=== PATIENT | male | born 1960 | race Caucasian/White ===

== ENCOUNTER 2021-10-19 20:49 | Emergency (ER) | payer MEDICAID ==
[2021-10-19 22:18] LABS: TROPONIN I HIGH SENSITIVITY 12.9 pg/mL (<=60.3)
== END 2021-10-19 22:46 | disposition home or self-care (01) ==
LOC: JP.ED 20:49
DX: I10 Essential (primary) hypertension (principal); E66.9 Obesity, unspecified; E78.5 Hyperlipidemia, unspecified; R73.03 Prediabetes; Z68.35 Body mass index [BMI] 35.0-35.9, adult; Z88.5 Allergy status to narcotic agent; Z91.030 Bee allergy status; Z79.82 Long term (current) use of aspirin; Z79.899 Other long term (current) drug therapy; Z87.891 Personal history of nicotine dependence
CPT/HCPCS: 36415; 80048; 84484; 85025; 93005; 93010; 99283; 99283-25

== ENCOUNTER 2023-11-17 06:35 | Day surgery (SDC) | payer MEDICAID ==
[2023-11-17] MEDS ORDERED: Midazolam 1 MG/ML 2 ML SDV ONE (07:13)
[2023-11-17] MEDS ORDERED: fentaNYL 50 MCG/ML SDV ONE (07:13)
[2023-11-17] MEDS ORDERED: Propofol 200 MG/20 ML SDV ONE (07:13)
[2023-11-17] MEDS: Sodium Chloride 0.9% 1,000 ML IV SCH (07:16)
== END 2023-11-17 09:19 | disposition home or self-care (01) ==
LOC: JP.SDS 06:35
PROVIDERS: ATTEND Surgery
DX: Z12.11 Encounter for screening for malignant neoplasm of colon (principal); D12.2 Benign neoplasm of ascending colon; K63.5 Polyp of colon; I10 Essential (primary) hypertension; K21.9 Gastro-esophageal reflux disease without esophagitis; E78.5 Hyperlipidemia, unspecified; E11.9 Type 2 diabetes mellitus without complications
CPT/HCPCS: 00811; 45385; 88305; J2250; J2704; J3010; J7030

== ENCOUNTER 2024-11-26 15:22 | Emergency (ER) | payer MEDICAID, OTHER ==
[2024-11-26] MEDS: EPINEPHrine 1 MG/ML SDV IM ONE (15:22)
== END 2024-11-26 17:38 | disposition home or self-care (01) ==
LOC: JP.ED 15:22
DX: T63.444A Toxic effect of venom of bees, undetermined, initial encounter (principal); I10 Essential (primary) hypertension; E78.00 Pure hypercholesterolemia, unspecified; K21.9 Gastro-esophageal reflux disease without esophagitis; Z88.5 Allergy status to narcotic agent; Z88.8 Allergy status to other drugs, medicaments and biological substances; Z91.030 Bee allergy status; Z79.82 Long term (current) use of aspirin; Z79.84 Long term (current) use of oral hypoglycemic drugs; Z79.899 Other long term (current) drug therapy
CPT/HCPCS: 93005; 96372; 99284; J0171; J7512; 93010